=== PATIENT | female | born 1940 | race Caucasian/White ===

== ENCOUNTER 2018-12-03 18:02 | Emergency (ER) | payer OTHER ==
[~2018-12-03] VITALS: Ht 154.9 cm; Wt 90.0 kg
[2018-12-03] MEDS ORDERED: TETANUS, DIPHTHERIA, PERTUSSIS VAC/PF 0.5ML (>7YR OLD) IM ONE (18:45)
[2018-12-03] MEDS ORDERED: ACETAMINOPHEN 325MG TABLET PO ONE (18:45)
[2018-12-03] MEDS ORDERED: LIDOCAINE HCL 1% 20ML VIAL (Pyxis) INJ INFIL ONE (22:45)
[2018-12-04 02:13] VITALS: BP 176/71
== END 2018-12-04 02:16 | disposition home or self-care (01) ==
LOC: ER 18:02
DX: S52.512A Displaced fracture of left radial styloid process, initial encounter for closed fracture (principal); S52.615A Nondisplaced fracture of left ulna styloid process, initial encounter for closed fracture; S00.81XA Abrasion of other part of head, initial encounter; E11.9 Type 2 diabetes mellitus without complications; E78.00 Pure hypercholesterolemia, unspecified; I10 Essential (primary) hypertension; R42 Dizziness and giddiness; W18.09XA Striking against other object with subsequent fall, initial encounter; Y93.89 Activity, other specified; Y92.488 Other paved roadways as the place of occurrence of the external cause
CPT/HCPCS: 25565; 70450; 73090; 73100; 73110; 73120; 90471; 90715; 99284; J3490

== ENCOUNTER 2020-07-13 18:07 | Inpatient (IN) | payer OTHER ==
[~2020-07-13] VITALS: Ht 144.8 cm; Wt 65.8 kg
[2020-07-13] MEDS ORDERED: IPRATROPIUM BROMIDE (0.02%) 0.5MG/2.5ML NEB HHN STA (18:20)
[2020-07-13] MEDS ORDERED: PREDNISONE 20MG TABLET PO STA (18:20)
[2020-07-13] MEDS ORDERED: ALBUTEROL (0.083%) 2.5MG/3ML NEB HHN STA (18:20)
[2020-07-13] MEDS ORDERED: MAGNESIUM 2 G PREMIX 50 ML IV STA (18:41)
[2020-07-13 18:52] LABS: BASOPHILS % 0.4 % (0.0-2.0); EOSINOPHILS % 1.2 % (0.0-5.0); HEMATOCRIT. 39.5 % (36.0-48.0); HEMOGLOBIN. 12.9 g/dL (12.0-16.0); LYMPHOCYTES % 15.2 % (20.0-50.0); MEAN CORPUSCULAR HEMOGLOBIN 26.7 pg (28.0-32.0); MEAN CORPUSCULAR VOLUME 81.9 fL (81.0-99.0); MEAN PLATELET VOLUME 11.2 fl (7.4-10.4); MONOCYTES % 6.3 % (2.0-8.0); NEUTROPHILS % 76.9 % (40.0-76.0); PLATELET 185 x1000/uL (130-400); RED BLOOD CELL COUNT 4.82 mill/uL (4.2-5.4); RED CELL DISTRIBUTION WIDTH 14.2 % (11.6-14.6)
[2020-07-13 19:00] LABS: CHLORIDE 107 mEq/L (98-107)
[2020-07-13] MEDS ORDERED: CEFTRIAXONE 1 G PREMIX 50 ML IV ONE (19:15)
[2020-07-13] MEDS ORDERED: AZITHROMYCIN 500 MG in DEXT 5% WATER 250 ML IV SCH (19:15)
[2020-07-13 22:30] VITALS: BP_SYST 137; BP_SYST 147; BP_DIAS 51
[2020-07-13 22:52] VITALS: BP 137/51
[2020-07-14] VITALS (10 sets, daily range): BP systolic 104–162; BP diastolic 48–81
[2020-07-14] MEDS ORDERED: DIPHENHYDRAMINE 50MG/ML VIAL IV PRN (00:15)
[2020-07-14] MEDS ORDERED: GUAIFENESIN 200MG/10ML SUGAR FREE UDC PO PRN (00:15)
[2020-07-14] MEDS ORDERED: ZOLPIDEM TARTRATE 5MG TABLET PO PRN (00:15)
[2020-07-14] MEDS ORDERED: CLONIDINE 0.1MG TABLET PO PRN (00:15)
[2020-07-14] MEDS ORDERED: MAGNESIUM/ALUMINUM HYDROXIDE/SIMETHICONE 30ML UDC PO PRN (00:15)
[2020-07-14] MEDS ORDERED: DEXTROSE 50% WATER 50ML SYRINGE IV PRN ×2 (00:15→11:00)
[2020-07-14] MEDS ORDERED: ACETAMINOPHEN 325MG TABLET PO PRN ×2 (00:15)
[2020-07-14] MEDS ORDERED: ALBUTEROL 6.7GM HFA INHALER ORI PRN (00:15)
[2020-07-14] MEDS ORDERED: ALBU6.7H9 INH (00:56)
[2020-07-14] MEDS ORDERED: METF-414 MT (00:56)
[2020-07-14] MEDS ORDERED: INSLIS SUBCUT (00:56)
[2020-07-14] MEDS ORDERED: LOSA25TA3 PO (00:56)
[2020-07-14] MEDS ORDERED: AMLO10TA4 PO (00:56)
[2020-07-14] MEDS ORDERED: LIP40 PO (00:56)
[2020-07-14] MEDS ORDERED: ATEN-42 PO (00:56)
[2020-07-14] MEDS ORDERED: POTASSIUM CHLORIDE 20MEQ TABLET SR PO NR (01:00)
[2020-07-14] MEDS: ALBUTEROL (0.083%) 2.5MG/3ML NEB HHN PRN ×2 (05:34→08:57)
[2020-07-14] MEDS: SODIUM CHLORIDE 0.9% INJ 3ML FLUSH IVF SCH ×3 (05:51→22:18)
[2020-07-14] MEDS: ONDANSETRON HCL 4MG/2ML INJ IV PRN ×2 (05:57→10:38)
[2020-07-14] MEDS ORDERED: METHYLPREDNISOLONE SOD SUCC 40 MG/ML VIAL IV SCH ×2 (06:00→10:15)
[2020-07-14] MEDS ORDERED: BLOOD SUGAR DIAGNOSTIC STRIP TEST SCH (07:20)
[2020-07-14] MEDS ORDERED: INSULIN LISPRO 100 UNITS/ML SUBCUT SCH (07:50)
[2020-07-14] MEDS: FAMOTIDINE 20MG TABLET PO SCH ×2 (08:26→22:18)
[2020-07-14] MEDS: ENOXAPARIN 40MG/0.4ML SYR SUBCUT SCH (08:27)
[2020-07-14] MEDS ORDERED: FUROSEMIDE 40MG/4ML VIAL IVP SCH ×2 (10:00→11:30)
[2020-07-14 10:58] LABS: BG BASE EXCESS -10.8 mmol/L (-2.0-2.0); BG CARBOXYHEMOGLOBIN 0.6 % (0.5-1.5); BG DEOXYHEMOGLOBIN 4.3 % (0.0-5.0); BG FRACTION INSPIRED OXYGEN 50; BG METHEMOGLOBIN 0.3 % (0.0-1.5); BG OXYGEN SATURATION 95.7 % (92.0-98.5); BG OXYHEMOGLOBIN 94.8 % (94.0-97.0); BG PCO2 45.3 mmHg (35.0-45.0); BG PH 7.193 (7.350-7.450); BG PO2 89.3 mmHg (75.0-100.0); BG SAMPLE SITE RIGHT RADIAL; BG TOTAL HEMOGLOBIN 13.5 g/dL (12.0-18.0); BG TOTAL RESPIRATORY RATE 29 b/min; BG VENT MODE MASK - BIPAP
[2020-07-14] MEDS ORDERED: IPRATROPIUM/ALBUTEROL 0.5-3(2.5)MG/3ML NEB HHN NR (11:00)
[2020-07-14] MEDS ORDERED: SODIUM BICARBONATE 8.4% 1 MEQ/ML 50ML SYR IV SCH (11:30)
[2020-07-14 12:32] LABS: HEMATOCRIT. 41.1 % (36.0-48.0); HEMOGLOBIN. 12.7 g/dL (12.0-16.0); MEAN CORPUSCULAR HEMOGLOBIN 26.1 pg (28.0-32.0); MEAN CORPUSCULAR VOLUME 84.4 fL (81.0-99.0); MEAN PLATELET VOLUME 12.2 fl (7.4-10.4); PLATELET 193 x1000/uL (130-400); RED BLOOD CELL COUNT 4.87 mill/uL (4.2-5.4); RED CELL DISTRIBUTION WIDTH 14.8 % (11.6-14.6)
[2020-07-14 12:38] LABS: CHLORIDE 106 mEq/L (98-107)
[2020-07-14] MEDS: BLOOD SUGAR DIAGNOSTIC STRIP TEST SCH ×3 (12:59→21:00)
[2020-07-14] MEDS ORDERED: POTASSIUM CHLORIDE INJ 40 MEQ in DEXT 5% WATER 250 ML IV NR (13:00)
[2020-07-14] MEDS: METHYLPREDNISOLONE SOD SUCC 125 MG/2 ML VIAL IV SCH ×2 (13:00→22:18)
[2020-07-14 13:14] LABS: PLATELET ESTIMATE NORMAL
[2020-07-14] MEDS: INSULIN LISPRO 100 UNITS/ML SUBCUT SCH ×3 (13:31→21:00)
[2020-07-14] MEDS: PIPERACILLIN/TAZOBACTAM 3.375 G in DEXT 5% WATER 100 ML IV SCH ×2 (16:12→18:18)
[2020-07-14] MEDS ORDERED: INSULIN GLARGINE UD 100 UNITS/ML SYR SUBCUT SCH (22:00)
[2020-07-15] VITALS (11 sets, daily range): BP systolic 120–147; BP diastolic 55–73
[2020-07-15 05:35] LABS: CHLORIDE 103 mEq/L (98-107)
[2020-07-15 05:42] LABS: PHOSPHORUS 3.4 mg/dL (2.5-4.9)
[2020-07-15] MEDS: METHYLPREDNISOLONE SOD SUCC 125 MG/2 ML VIAL IV SCH ×3 (06:00→21:26)
[2020-07-15] MEDS: PIPERACILLIN/TAZOBACTAM 3.375 G in DEXT 5% WATER 100 ML IV SCH ×5 (06:00→23:59)
[2020-07-15] MEDS: SODIUM CHLORIDE 0.9% INJ 3ML FLUSH IVF SCH ×3 (06:00→21:26)
[2020-07-15 06:25] LABS: HEMATOCRIT. 34.9 % (36.0-48.0); HEMOGLOBIN. 11.2 g/dL (12.0-16.0); MEAN CORPUSCULAR HEMOGLOBIN 26.3 pg (28.0-32.0); MEAN CORPUSCULAR VOLUME 81.7 fL (81.0-99.0); MEAN PLATELET VOLUME 11.5 fl (7.4-10.4); PLATELET 158 x1000/uL (130-400); RED BLOOD CELL COUNT 4.27 mill/uL (4.2-5.4); RED CELL DISTRIBUTION WIDTH 14.4 % (11.6-14.6)
[2020-07-15] MEDS: BLOOD SUGAR DIAGNOSTIC STRIP TEST SCH ×4 (07:46→21:27)
[2020-07-15] MEDS: INSULIN LISPRO 100 UNITS/ML SUBCUT SCH ×4 (07:56→21:26)
[2020-07-15] MEDS: FAMOTIDINE 20MG TABLET PO SCH ×2 (08:03→21:23)
[2020-07-15] MEDS: ENOXAPARIN 40MG/0.4ML SYR SUBCUT SCH (08:04)
[2020-07-15 10:03] LABS: BG BASE EXCESS 1.4 mmol/L (-2.0-2.0); BG DEOXYHEMOGLOBIN 2.6 % (0.0-5.0); BG FRACTION INSPIRED OXYGEN 50; BG HCO3 ACT 25.4 mmol/L (22.0-26.0); BG METHEMOGLOBIN 0.3 % (0.0-1.5); BG OXYGEN SATURATION 97.4 % (92.0-98.5); BG OXYHEMOGLOBIN 97.1 % (94.0-97.0); BG PCO2 38.2 mmHg (35.0-45.0); BG PH 7.441 (7.350-7.450); BG PO2 97.5 mmHg (75.0-100.0); BG SAMPLE SITE RIGHT RADIAL; BG TOTAL HEMOGLOBIN 12.4 g/dL (12.0-18.0); BG VENT MODE MASK - BIPAP
[2020-07-15 11:06] LABS: CLARITY URINE CLEAR (CLEAR); COLOR URINE YELLOW (YELLOW); KETONES URINE TRACE (NEGATIVE); LEUKOCYTE ESTERASE URINE NEGATIVE (NEGATIVE); NITRITE URINE NEGATIVE (NEGATIVE); OCCULT BLOOD URINE NEGATIVE (NEGATIVE); PH URINE 6.5 (4.5-8.0); PROTEIN URINE NEGATIVE (NEGATIVE); SPECIFIC GRAVITY URINE 1.022 (1.005-1.030); UROBILINOGEN URINE 0.2 E.U./dL (0.2-1.0)
[2020-07-15] MEDS ORDERED: FUROSEMIDE 40MG/4ML VIAL IVP NR (14:30)
[2020-07-15] MEDS ORDERED: FUROSEMIDE 40MG/4ML VIAL IVP SCH (16:30)
[2020-07-15] MEDS: ASPIRIN 81MG EC TABLET PO SCH (17:18)
[2020-07-15] MEDS ORDERED: ASPIRIN 81MG EC TABLET PO NR ×2 (18:12→18:45)
[2020-07-15] MEDS ORDERED: METOLAZONE 2.5MG TABLET PO NR (18:27)
[2020-07-15] MEDS ORDERED: POTASSIUM CHLORIDE 20MEQ TABLET SR PO NR (18:30)
[2020-07-15] MEDS: ENOXAPARIN 80MG/0.8ML SYR SUBCUT SCH (18:40)
[2020-07-15 20:03] LABS: HEMATOCRIT. 35.7 % (36.0-48.0); HEMOGLOBIN. 11.8 g/dL (12.0-16.0); MEAN CORPUSCULAR HEMOGLOBIN 27.1 pg (28.0-32.0); MEAN CORPUSCULAR VOLUME 82.1 fL (81.0-99.0); MEAN PLATELET VOLUME 11.6 fl (7.4-10.4); PLATELET 165 x1000/uL (130-400); RED BLOOD CELL COUNT 4.35 mill/uL (4.2-5.4); RED CELL DISTRIBUTION WIDTH 14.5 % (11.6-14.6)
[2020-07-15] MEDS: IPRATROPIUM/ALBUTEROL 0.5-3(2.5)MG/3ML NEB HHN SCH (20:15)
[2020-07-15 20:18] LABS: CHLORIDE 98 mEq/L (98-107)
[2020-07-15] MEDS: ATORVASTATIN CALCIUM 40MG TABLET PO SCH (21:24)
[2020-07-15] MEDS: CARVEDILOL 3.125 MG TABLET PO SCH (21:24)
[2020-07-15] MEDS: INSULIN GLARGINE UD 100 UNITS/ML SYR SUBCUT SCH (21:25)
[2020-07-15] MEDS: FUROSEMIDE 40MG/4ML VIAL IVP SCH (21:27)
[2020-07-15 21:47] LABS: PLATELET ESTIMATE NORMAL
[2020-07-16] VITALS (17 sets, daily range): BP systolic 117–168; BP diastolic 46–90
[2020-07-16 00:01] LABS: PLATELET ESTIMATE NORMAL
[2020-07-16] MEDS: IPRATROPIUM/ALBUTEROL 0.5-3(2.5)MG/3ML NEB HHN SCH ×4 (01:30→20:15)
[2020-07-16] MEDS: PIPERACILLIN/TAZOBACTAM 3.375 G in DEXT 5% WATER 100 ML IV SCH ×3 (05:35→17:17)
[2020-07-16] MEDS: METHYLPREDNISOLONE SOD SUCC 125 MG/2 ML VIAL IV SCH ×3 (05:35→21:17)
[2020-07-16] MEDS: ENOXAPARIN 80MG/0.8ML SYR SUBCUT SCH ×2 (05:35→17:17)
[2020-07-16] MEDS: SODIUM CHLORIDE 0.9% INJ 3ML FLUSH IVF SCH ×3 (06:03→21:17)
[2020-07-16 06:47] LABS: INR 1.1; PROTHROMBIN TIME 11.3 sec (9.6-11.0)
[2020-07-16] MEDS: FUROSEMIDE 40MG/4ML VIAL IVP SCH ×2 (08:10→21:17)
[2020-07-16] MEDS: BLOOD SUGAR DIAGNOSTIC STRIP TEST SCH ×4 (08:11→21:17)
[2020-07-16] MEDS: FAMOTIDINE 20MG TABLET PO SCH ×2 (08:11→21:17)
[2020-07-16] MEDS: CARVEDILOL 3.125 MG TABLET PO SCH ×2 (08:11→21:17)
[2020-07-16] MEDS: ASPIRIN 81MG EC TABLET PO SCH (08:11)
[2020-07-16] MEDS: INSULIN LISPRO 100 UNITS/ML SUBCUT SCH ×4 (08:12→21:16)
[2020-07-16] MEDS: LOSARTAN POTASSIUM 25 MG TABLET PO SCH (15:42)
[2020-07-16] MEDS: INSULIN GLARGINE UD 100 UNITS/ML SYR SUBCUT SCH (21:16)
[2020-07-16] MEDS: ATORVASTATIN CALCIUM 40MG TABLET PO SCH (21:17)
[2020-07-17] VITALS (12 sets, daily range): BP systolic 107–163; BP diastolic 48–81
[2020-07-17] MEDS: PIPERACILLIN/TAZOBACTAM 3.375 G in DEXT 5% WATER 100 ML IV SCH ×5 (00:20→23:44)
[2020-07-17] MEDS: IPRATROPIUM/ALBUTEROL 0.5-3(2.5)MG/3ML NEB HHN SCH ×4 (01:58→20:52)
[2020-07-17] MEDS: SODIUM CHLORIDE 0.9% INJ 3ML FLUSH IVF SCH ×3 (05:14→21:43)
[2020-07-17] MEDS: ENOXAPARIN 80MG/0.8ML SYR SUBCUT SCH ×2 (05:17→17:32)
[2020-07-17 06:53] LABS: MEAN CORPUSCULAR HEMOGLOBIN 26.6 pg (28.0-32.0); MEAN CORPUSCULAR VOLUME 81.5 fL (81.0-99.0); MEAN PLATELET VOLUME 11.6 fl (7.4-10.4); PLATELET 175 x1000/uL (130-400); RED BLOOD CELL COUNT 5.27 mill/uL (4.2-5.4); RED CELL DISTRIBUTION WIDTH 14.5 % (11.6-14.6)
[2020-07-17 07:04] LABS: CHLORIDE 91 mEq/L (98-107)
[2020-07-17] MEDS ORDERED: POTASSIUM CHLORIDE 20MEQ TABLET SR PO SCH (08:00)
[2020-07-17] MEDS: BLOOD SUGAR DIAGNOSTIC STRIP TEST SCH ×4 (08:11→21:11)
[2020-07-17] MEDS: FUROSEMIDE 40MG/4ML VIAL IVP SCH ×2 (08:29→21:41)
[2020-07-17] MEDS: FAMOTIDINE 20MG TABLET PO SCH ×2 (08:29→21:39)
[2020-07-17] MEDS: LOSARTAN POTASSIUM 25 MG TABLET PO SCH (08:29)
[2020-07-17] MEDS: METHYLPREDNISOLONE SOD SUCC 125 MG/2 ML VIAL IV SCH ×2 (08:30→21:39)
[2020-07-17] MEDS: INSULIN LISPRO 100 UNITS/ML SUBCUT SCH ×4 (08:31→21:43)
[2020-07-17] MEDS: CARVEDILOL 3.125 MG TABLET PO SCH ×2 (08:37→21:41)
[2020-07-17] MEDS: ASPIRIN 81MG EC TABLET PO SCH (08:37)
[2020-07-17] MEDS ORDERED: CLOPIDOGREL 75MG TABLET PO SCH (09:00)
[2020-07-17] MEDS ORDERED: POTASSIUM CHLORIDE INJ 40 MEQ in DEXT 5% WATER 250 ML IV SCH (09:00)
[2020-07-17 09:28] LABS: PHOSPHORUS 1.1 mg/dL (2.5-4.9)
[2020-07-17] MEDS ORDERED: POTASSIUM CHLORIDE 20MEQ TABLET SR PO NR (10:00)
[2020-07-17] MEDS ORDERED: POTASSIUM PHOS,M-BASIC-D-BASIC 20 MMOL in DEXT 5% WATER 243.3333 ML IV NR (11:00)
[2020-07-17 14:08] LABS: PLATELET ESTIMATE NORMAL
[2020-07-17 17:25] LABS: PHOSPHORUS 6.5 mg/dL (2.5-4.9)
[2020-07-17] MEDS: POTASSIUM CHLORIDE 20MEQ TABLET SR PO SCH ×2 (21:39→23:44)
[2020-07-17] MEDS: ATORVASTATIN CALCIUM 40MG TABLET PO SCH (21:41)
[2020-07-17] MEDS: INSULIN GLARGINE UD 100 UNITS/ML SYR SUBCUT SCH (21:44)
[2020-07-18] VITALS (12 sets, daily range): BP systolic 115–139; BP diastolic 50–77
[2020-07-18] MEDS ORDERED: POTASSIUM CHLORIDE 20MEQ TABLET SR PO NR ×3 (01:30→12:48)
[2020-07-18] MEDS: IPRATROPIUM/ALBUTEROL 0.5-3(2.5)MG/3ML NEB HHN SCH ×3 (01:47→13:08)
[2020-07-18] MEDS ORDERED: POTASSIUM CHLORIDE INJ 60 MEQ in DEXT 5% WATER 500 ML IV NR (02:00)
[2020-07-18] MEDS: SODIUM CHLORIDE 0.9% INJ 3ML FLUSH IVF SCH ×2 (05:10→14:27)
[2020-07-18] MEDS: PIPERACILLIN/TAZOBACTAM 3.375 G in DEXT 5% WATER 100 ML IV SCH ×2 (05:18→12:13)
[2020-07-18 06:43] LABS: PROTHROMBIN TIME 11.2 sec (9.6-11.0)
[2020-07-18 06:48] LABS: HEMATOCRIT. 45.5 % (36.0-48.0); HEMOGLOBIN. 14.9 g/dL (12.0-16.0); MEAN CORPUSCULAR HEMOGLOBIN 26.3 pg (28.0-32.0); MEAN CORPUSCULAR VOLUME 80.6 fL (81.0-99.0); MEAN PLATELET VOLUME 11.6 fl (7.4-10.4); PLATELET 192 x1000/uL (130-400); RED BLOOD CELL COUNT 5.65 mill/uL (4.2-5.4); RED CELL DISTRIBUTION WIDTH 14.1 % (11.6-14.6)
[2020-07-18 08:04] LABS: CHLORIDE 93 mEq/L (98-107)
[2020-07-18] MEDS: BLOOD SUGAR DIAGNOSTIC STRIP TEST SCH ×3 (08:21→17:30)
[2020-07-18] MEDS ORDERED: METHYLPREDNISOLONE SOD SUCC 125 MG/2 ML VIAL IV SCH (09:00)
[2020-07-18] MEDS: LOSARTAN POTASSIUM 25 MG TABLET PO SCH (09:07)
[2020-07-18] MEDS: FAMOTIDINE 20MG TABLET PO SCH (09:07)
[2020-07-18] MEDS: FUROSEMIDE 40MG/4ML VIAL IVP SCH (09:07)
[2020-07-18] MEDS: CARVEDILOL 3.125 MG TABLET PO SCH (09:08)
[2020-07-18] MEDS: ASPIRIN 81MG EC TABLET PO SCH (09:08)
[2020-07-18] MEDS: INSULIN LISPRO 100 UNITS/ML SUBCUT SCH ×3 (09:23→19:17)
[2020-07-18 10:53] LABS: PLATELET ESTIMATE NORMAL
[2020-07-18] MEDS ORDERED: FUROSEMIDE 40MG/4ML VIAL IVP ONE (11:45)
[2020-07-18] MEDS ORDERED: FUROSEMIDE 40MG/4ML VIAL IVP NR (13:00)
[2020-07-18] MEDS ORDERED: ENOXAPARIN 80MG/0.8ML SYR SUBCUT NR (17:00)
[2020-07-19] MEDS ORDERED: POTASSIUM CHLORIDE 20MEQ TABLET SR PO SCH (09:00)
[2020-07-19] MEDS ORDERED: METHYLPREDNISOLONE SOD SUCC 40 MG/ML VIAL IV SCH (09:00)
[2020-07-19] MEDS ORDERED: FAMOTIDINE 20MG TABLET PO SCH (09:00)
== END 2020-07-18 20:38 | disposition short-term general hospital (02) | DRG 280 ==
LOC: ER 18:07 → 7WST 20:37 → EDBEDREQSVC 20:45 → ENRESERV 21:52 → 6WST 07-14 05:11 → 5EST 07-14 11:39
PROVIDERS: ADMIT Internal Medicine; ATTEND Internal Medicine
PROC: 5A09457 Assistance with Respiratory Ventilation, 24-96 Consecutive Hours, Continuous Positive Airway Pressure (ICD-10-PCS; principal; 2020-07-14)
DX: I21.4 Non-ST elevation (NSTEMI) myocardial infarction (principal); J96.01 Acute respiratory failure with hypoxia; J12.9 Viral pneumonia, unspecified; I50.23 Acute on chronic systolic (congestive) heart failure; I42.0 Dilated cardiomyopathy; D68.9 Coagulation defect, unspecified; Z20.822 Contact with and (suspected) exposure to COVID-19; E78.00 Pure hypercholesterolemia, unspecified; I34.0 Nonrheumatic mitral (valve) insufficiency; I44.7 Left bundle-branch block, unspecified; J45.909 Unspecified asthma, uncomplicated; K76.9 Liver disease, unspecified; E78.5 Hyperlipidemia, unspecified; E87.6 Hypokalemia; I11.0 Hypertensive heart disease with heart failure; E11.65 Type 2 diabetes mellitus with hyperglycemia
CPT/HCPCS: 36415; 36600; 71045; 78580; 80048; 80053; 81003; 82375; 82805; 82962; 83036; 83735; 83880; 84100; 84132; 84145; 84443; 84484; 85025; 87426; 93005; 93306; 93970; 94640; 94660; 99291; J0456; J0696; J1650; J1815; J1940; J2405; J2543; J2920; J2930; J3475; J3480; J3490; J7060; J7512; U0003